=== PATIENT | male | born 1965 | race Caucasian/White ===

== ENCOUNTER 2017-07-24 09:56 | Day surgery (SDC) | payer BC ==
[~2017-07-24 09:56] MED LIST: Lactated Ringers 1,000 ML IV SCH; Lidocaine 2% 5 ML SDV ONE; Propofol 200 MG/20 ML SDV ONE
--- NOTE | 2017-07-24 10:44 | PCM.PREANE ---
Preanesthetic Assessment - Anesthesia/Transfusion/Family Hx Anesthesia History: Prior Anesthesia Reaction Type of Anesthesia Reaction: Other (see below) Other Type of Anesthesia Reaction Comment: was more awake than he wanted to be for EGD and colonoscopy Transfusion History: No Prior Transfusion(s) - Review of Systems General: No Symptoms Pulmonary: No Symptoms Cardiovascular: No Symptoms Gastrointestinal: No Symptoms Neurological: No Symptoms Other: Reports: None - Physical Assessment NPO Status Date: 07/23/17 Height: 1.96 m Weight: 122.924 kg ASA Class: 2 Mental Status: Alert & Oriented x3 Airway Class: Mallampati = 1 Dentition: Reports: Normal Dentition ROM/Head Extension: Full Lungs: Clear to Auscultation, Normal Respiratory Effort Cardiovascular: Regular Rate, Regular Rhythm - Allergies Allergies/Adverse Reactions: Allergies Allergy/AdvReac Type Severity Reaction Status Date / Time cephalexin Allergy Rash Verified 07/22/17 10:08 morphine Allergy Agitation Verified 07/22/17 10:08 - Anesthesia Plan Pre-Op Medication Ordered: None - Acknowledgements Anesthesia Type Planned: MAC Pt an Appropriate Candidate for the Planned Anesthesia: Yes Alternatives and Risks of Anesthesia Discussed w Pt/Guardian: Yes Pt/Guardian Understands and Agrees with Anesthesia Plan: Yes Additional Comments: recent elevation in BP, started on amlodipine but has not staken it yet. BP today 130/80. Recent cardiac w/u for atypical chest pain. Neg for ischemia. PreAnesthesia Questionnaire Gastrointestinal History: Reports: Colon Polyp, GERD, Hiatal Hernia Musculoskeletal History: Reports: Fracture Other Musculoskeletal History: hx of fx right hand and ribs Endocrine/Metabolic History: Reports: Obesity/BMI 30+ - Past Surgical History Head Surgeries/Procedures: Reports: None GI Surgical History: Reports: Colonoscopy, EGD, Other (See Below) Other GI Surgeries/Procedures: esophageal dilatation Musculoskeletal Surgical History: Reports: Arthroscopic Knee, Other (See Below) Other Musculoskeletal Surgeries/Procedures:: multiple knee arthroscopies on both knees, ACL repair left knee (has screws) - SUBSTANCE USE Smoking Status *Q: Former Smoker Tobacco Use Within Last Twelve Months: No Recreational Drug Use History: No - HOME MEDS Home Medications: Home Meds Aspirin [Adult Low Dose Aspirin EC] 81 mg PO DAILY 07/22/17 [History] Multivit-Min/FA/Lycopene/Lut [Centrum Silver Ultra Men's] 2 tab PO DAILY [History] Naproxen Sodium [Aleve] 440 mg PO DAILY 07/22/17 [History] Omeprazole 20 mg PO DAILY 07/22/17 [History] - CURRENT (IN HOUSE) MEDS Current Meds: Current Medications Lactated Ringer's (Ringers, Lactated) 1,000 mls @ 125 mls/hr IV ASDIRECTED WIL Discontinued Medications Lidocaine (Xylocaine-Mpf 2%) Confirm Administered Dose 5 ml .ROUTE .STK-MED ONE Stop: 07/24/17 07:38 Propofol (Diprivan 20 Ml) Confirm Administered Dose 400 mg .ROUTE .STK-MED ONE Stop: 07/24/17 07:38
--- NOTE | 2017-07-24 12:24 | PCM.OPNOTE ---
- General Post-Op/Procedure Note Date of Surgery/Procedure: 07/24/17 Operative Procedure(s): Esophagogastroduodenoscopy with gastric and esophageal biopsies. Colonoscopy. Pre Op Diagnosis: History of esophageal stricture. Rectal bleeding. Post-Op Diagnosis: Gastritis with esophagitis. No evidence of colonic neoplasia. Anesthesia Technique: MAC (ASA III) Primary Surgeon: Giovanni Johnson Condition: Good Free Text/Narrative:: DICTATION [id number] CPT CODE [id number]/63137
[2017-07-24] MEDS ORDERED: Lactated Ringers 1,000 ML IV SCH (12:30)
--- NOTE | 2017-07-24 12:56 | PCM48HPAN ---
Post Anesthesia Note - EVALUATION WITHIN 48HRS OF ANESTHETIC Vital Signs in Normal Range: Yes Patient Participated in Evaluation: Yes Respiratory Function Stable: Yes Airway Patent: Yes Cardiovascular Function Stable: Yes Hydration Status Stable: Yes Pain Control Satisfactory: Yes Nausea and Vomiting Control Satisfactory: Yes Mental Status Recovered: Yes Resp Rate: 16
--- NOTE | 2017-07-24 12:56 | PCM.POSTAN ---
POST ANESTHESIA ASSESSMENT - MENTAL STATUS Mental Status: Alert, Oriented - RESPIRATORY Respiratory Status: Respiratory Rate WNL, Airway Patent, O2 Saturation Stable - CARDIOVASCULAR CV Status: Pulse Rate WNL, Blood Pressure Stable - GASTROINTESTINAL GI Status: No Symptoms - POST OP HYDRATION Hydration Status: Adequate & Stable
--- NOTE | 2017-07-24 14:27 | OR ---
SURGEON: Giovanni Johnson M.D. DATE OF PROCEDURE: 07/24/2017 OPERATION PERFORMED: History of dysphagia, requiring previous endoscopic dilatation. ASA CLASS 3. ANESTHESIA: Monitored anesthesia care. PREOOPERATIVE DIAGNOSIS: History of esophageal stricture. Dysphagia POSTOPERATIVE DIAGNOSES: 1. Gastritis. 2. Hiatal hernia. DESCRIPTION OF PROCEDURE: The patient was taken to the endoscopy room and positioned on the endoscopy table in the left lateral decubitus position. Time-out was called for appropriate identification of the patient and procedure. Monitored anesthesia care was provided. The bite block was placed between the patient's teeth. The gastroscope was inserted through the bite block and advanced without difficulty through the esophagus and stomach into the duodenum where examination was carried out in a retrograde fashion. No blood was seen in the upper GI tract. There was no acute inflammatory changes noted within the duodenum. No ulcers were noted. The scope was withdrawn to the stomach, which does show a very mild gastritis. Antral biopsies were obtained to look for the presence of Helicobacter pylori. The gastroscope was then retroflexed to visualize the proximal stomach. No lesions were noted proximally. Specifically, no tumors or ulcers were seen. The gastroscope was then slowly withdrawn aspirating the stomach. The patient does have a hiatal hernia, this is small. There was no obstruction to the insertion of the scope. The GE junction is well defined, but did show some mild inflammatory changes. Separate biopsies of this area were obtained. The esophagus itself demonstrates good contractility. The vocal cords were briefly visualized as the scope was withdrawn and noted to move symmetrically. The gastroscope was then removed with the patient having tolerated this portion of the procedure well. Following colonoscopy, he was taken to recovery room in stable condition. LUCILA ESTRADA /[id number] JUAQUIN
--- NOTE | 2017-07-24 14:36 | OR ---
SURGEON: Giovanni Johnson M.D. DATE OF PROCEDURE: 07/24/2017 OPERATION PERFORMED: Colonoscopy. ANESTHESIA: MAC. ASA CLASSIFICATION: III. PREOPERATIVE DIAGNOSIS: Rectal bleeding. POSTOPERATIVE DIAGNOSIS: No evidence of neoplasia. DESCRIPTION OF PROCEDURE: With the patient having completed esophagogastroduodenoscopy, he was maintained in the left lateral decubitus position. The colonoscope was inserted into the rectum and advanced without difficulty to the cecum where the colonoscope was retroflexed to visualize the ascending colon from below. The colonoscope was then straightened and slowly withdrawn. The cecum, ascending colon, hepatic flexure, transverse colon, splenic flexure, descending colon, sigmoid colon, and rectum were very well visualized. No tumors, polyps, diverticula, or angiodysplastic changes were noted anywhere in the lower gastrointestinal tract. Once the colonoscope was withdrawn to the rectum, it was retroflexed to visualize the anal orifice from above. Again, no tumors or polyps were seen, and there were no acute hemorrhoidal changes. The colonoscope was then straightened, the rectum aspirated, and the colonoscope removed. The patient tolerated the procedure well and was taken to recovery room in satisfactory condition. LUCILA / SEAN /[id number]
== END 2017-07-24 12:59 | disposition home or self-care (01) ==
LOC: MW.SDS 09:56
PROVIDERS: ATTEND Surgery
DX: K62.5 Hemorrhage of anus and rectum (principal); R13.10 Dysphagia, unspecified; K29.50 Unspecified chronic gastritis without bleeding; K20.9 Esophagitis, unspecified; K44.9 Diaphragmatic hernia without obstruction or gangrene; I10 Essential (primary) hypertension; E66.9 Obesity, unspecified; Z68.32 Body mass index [BMI] 32.0-32.9, adult; K21.9 Gastro-esophageal reflux disease without esophagitis; Z86.010 Personal history of colon polyps; Z87.891 Personal history of nicotine dependence; Z79.82 Long term (current) use of aspirin; Z79.899 Other long term (current) drug therapy; Z88.5 Allergy status to narcotic agent; Z88.1 Allergy status to other antibiotic agents; Z83.71 Family history of colonic polyps
CPT/HCPCS: 43239; 45378; J7120; 88305; 88312; J2704

== ENCOUNTER 2017-08-31 06:33 | Day surgery (SDC) | payer BC ==
[~2017-08-31 06:33] MED LIST changes: -Lidocaine 2% 5 ML SDV ONE; -Propofol 200 MG/20 ML SDV ONE
[2017-08-31] MEDS ORDERED: Ondansetron 4 MG/2 ML SDV ONE (06:47)
[2017-08-31] MEDS ORDERED: Propofol 200 MG/20 ML SDV ONE (06:47)
[2017-08-31] MEDS ORDERED: Midazolam 1 MG/ML 2 ML SDV ONE (06:47)
[2017-08-31] MEDS ORDERED: fentaNYL 250 MCG/5 ML SDV ONE (06:47)
[2017-08-31] MEDS ORDERED: Lidocaine 2% 5 ML SDV ONE (06:47)
[2017-08-31] MEDS ORDERED: ceFAZolin 1 GM Vial ONE (07:13)
[2017-08-31] MEDS ORDERED: Bupivacaine 0.5% 10 ML SDV ONE (07:13)
--- NOTE | 2017-08-31 07:26 | PCM.PREANE ---
Preanesthetic Assessment - Anesthesia/Transfusion/Family Hx Anesthesia History: Prior Anesthesia Reaction Other Type of Anesthesia Reaction Comment: "I wake up to early" Family History of Anesthesia Reaction: No Transfusion History: No Prior Transfusion(s) Intubation History: Unknown - Review of Systems General: No Symptoms Pulmonary: No Symptoms Cardiovascular: No Symptoms Gastrointestinal: No Symptoms Neurological: No Symptoms Other: Reports: None - Physical Assessment Height: 1.96 m Weight: 123.377 kg ASA Class: 2 Mental Status: Alert & Oriented x3 Airway Class: Mallampati = 2 Dentition: Reports: Normal Dentition Thyro-Mental Finger Breadths: 3 Mouth Opening Finger Breadths: 2 ROM/Head Extension: Full Lungs: Clear to Auscultation, Normal Respiratory Effort Cardiovascular: Regular Rate, Regular Rhythm - Allergies Allergies/Adverse Reactions: Allergies Allergy/AdvReac Type Severity Reaction Status Date / Time cephalexin Allergy Rash Verified 08/26/17 08:55 morphine Allergy Agitation Verified 08/26/17 08:55 - Blood Blood Available: No - Anesthesia Plan Pre-Op Medication Ordered: None - Acknowledgements Anesthesia Type Planned: General Anesthesia Pt an Appropriate Candidate for the Planned Anesthesia: Yes Alternatives and Risks of Anesthesia Discussed w Pt/Guardian: Yes Pt/Guardian Understands and Agrees with Anesthesia Plan: Yes PreAnesthesia Questionnaire Cardiovascular History: Reports: Hypertension Gastrointestinal History: Reports: Colon Polyp, GERD, Hiatal Hernia Musculoskeletal History: Reports: Arthritis, Fracture Other Musculoskeletal History: hx of fx right hand and ribs Endocrine/Metabolic History: Reports: Obesity/BMI 30+ - Past Surgical History Head Surgeries/Procedures: Reports: None GI Surgical History: Reports: Colonoscopy (x3), EGD (x3), Other (See Below) Other GI Surgeries/Procedures: esophageal dilatation Musculoskeletal Surgical History: Reports: Arthroscopic Knee, Other (See Below) Other Musculoskeletal Surgeries/Procedures:: multiple knee arthroscopies on both knees (total 17 surgeries), ACL repair left knee (has screws) Dermatological Surgical History: Reports: Other (See Below) (exc. of multiple lipomas at one time) - SUBSTANCE USE Smoking Status *Q: Former Smoker (quit about 10 years ago) Tobacco Use Within Last Twelve Months: No Recreational Drug Use History: No - HOME MEDS Home Medications: Home Meds Aspirin [Adult Low Dose Aspirin EC] 81 mg PO DAILY 07/22/17 [History] Multivit-Min/FA/Lycopene/Lut [Centrum Silver Ultra Men's] 2 tab PO DAILY [History] Naproxen Sodium [Aleve] 440 mg PO DAILY 07/22/17 [History] Omeprazole 20 mg PO DAILY 07/22/17 [History] - CURRENT (IN HOUSE) MEDS Current Meds: Current Medications Lactated Ringer's (Ringers, Lactated) 1,000 mls @ 125 mls/hr IV ASDIRECTED WIL Last Admin: 08/31/17 06:55 Dose: 125 mls/hr Discontinued Medications Bupivacaine HCl (Sensorcaine-Mpf 0.5%) Confirm Administered Dose 20 ml .ROUTE .STK-MED ONE Stop: 08/31/17 07:14 Cefazolin Sodium (Ancef) Confirm Administered Dose 1 gm .ROUTE .STK-MED ONE Stop: 08/31/17 07:14 Fentanyl (Sublimaze) Confirm Administered Dose 250 mcg .ROUTE .STK-MED ONE Stop: 08/31/17 06:48 Lidocaine (Xylocaine-Mpf 2%) Confirm Administered Dose 5 ml .ROUTE .STK-MED ONE Stop: 08/31/17 06:48 Midazolam HCl (Versed 1 Mg/Ml) Confirm Administered Dose 2 mg .ROUTE .STK-MED ONE Stop: 08/31/17 06:48 Ondansetron HCl (Zofran) Confirm Administered Dose 4 mg .ROUTE .STK-MED ONE Stop: 08/31/17 06:48 Propofol (Diprivan 20 Ml) Confirm Administered Dose 200 mg .ROUTE .STK-MED ONE Stop: 08/31/17 06:48
[2017-08-31] MEDS ORDERED: Ciprofloxacin in D5W 200 ML ONE (07:35)
[2017-08-31] MEDS ORDERED: Phenylephrine/Normal Saline 100 MCG/ML 10 ML Syringe ONE (08:42)
[2017-08-31] MEDS ORDERED: Dexamethasone 4 MG/ML 5 ML MDV ONE (08:44)
[2017-08-31] MEDS ORDERED: Ondansetron 4 MG/2 ML SDV IVPUSH PRN (09:31)
[2017-08-31] MEDS ORDERED: Acetaminophen/HYDROcodone 325-5 MG Tab PO PRN (09:31)
--- NOTE | 2017-08-31 09:38 | PCM.OPNOTE ---
- General Post-Op/Procedure Note Date of Surgery/Procedure: 08/31/17 Operative Procedure(s): Repair indirect right inguinal hernia with medium Bard PerFix plug and patch Pre Op Diagnosis: Reducible right inguinal hernia Post-Op Diagnosis: Reducible indirect right inguinal hernia Anesthesia Technique: General ET Tube (ASA II) Primary Surgeon: Giovanni Johnson Fluid Replacement, Intraop: 1,000 EBL in mLs: 5 Condition: Good Free Text/Narrative:: DICTATION [id number] CPT CODE [id number]
[2017-08-31] MEDS ORDERED: Lactated Ringers 1,000 ML IV SCH (09:45)
[2017-08-31] MEDS: fentaNYL 100 MCG/2 ML SDV IVPUSH PRN ×2 (10:02→10:07)
--- NOTE | 2017-08-31 10:30 | PCM.POSTAN ---
POST ANESTHESIA ASSESSMENT - MENTAL STATUS Mental Status: Alert, Oriented - RESPIRATORY Respiratory Status: Respiratory Rate WNL, Airway Patent, O2 Saturation Stable - CARDIOVASCULAR CV Status: Pulse Rate WNL, Blood Pressure Stable - GASTROINTESTINAL GI Status: No Symptoms - PAIN Pain Score: 5 - POST OP HYDRATION Hydration Status: Adequate & Stable - OBSERVATIONS Free Text/Narrative:: no anesthesia problems
--- NOTE | 2017-08-31 12:49 | OR ---
SURGEON: Giovanni Johnson M.D. DATE OF PROCEDURE: 08/31/2017 OPERATION PERFORMED: Repair of right inguinal hernia with medium Bard PerFix plug and patch. ANESTHESIA: General endotracheal. ASA CLASSIFICATION: 2. PREOPERATIVE DIAGNOSIS: Reducible right inguinal hernia. POSTOPERATIVE DIAGNOSIS: Reducible indirect right inguinal hernia. ESTIMATED BLOOD LOSS: 5 mL. INTRAOPERATIVE FLUID REPLACEMENT: 1000 mL of crystalloid. DESCRIPTION OF PROCEDURE: The patient was taken to the operating room and placed on the operating table in the supine position. Time-out was called for appropriate identification of the patient and procedure. Thigh-high TEDs and sequential compression boots were placed. The surgical site had been marked prior to the patient entering the operating room. Following satisfactory attainment of general endotracheal anesthesia, the abdomen was prepped with DuraPrep solution. Sterile drapes were applied. The skin incision was marked out in the right inguinal crease. This was infiltrated with 10 mL of 0.5% Marcaine solution. The skin incision was made and deepened through the subcutaneous tissue obtaining hemostasis with the use of electrocautery. The external oblique fascia was opened in the direction of its fibers and retracted. The spermatic cord was identified and dissected away from the hernia sac. The hernia sac was then reduced. The defect was actually quite small and a medium Bard PerFix plug and patch was brought to the operating table and soaked in Ciprofloxacin antibiotic solution as the patient was allergic to Keflex. The plug was placed into the internal ring and secured with an 0 Ethibond suture. The patch was placed onto the inguinal floor with the wings brought around the cord laterally. The plug and patch were secured with multiple interrupted 0 Ethibond sutures inferiorly to Young's ligament transitioning to the inguinal ligament and superiorly to the transversalis fascia. The wings were brought around the cord and also secured laterally with 0 Ethibond. It should also be noted the plug and patch were secured together with at least 1 stitch to prevent migration. All sutures were tied down. The patient was given a Valsalva maneuver to 40 cm of water and the repair was solid. The wound was then irrigated with the ciprofloxacin antibiotic solution and all fluid aspirated. The cord was returned to its anatomic location. The external oblique fascia was closed with running 3-0 Vicryl. Lashay's fascia was closed with running 3-0 Vicryl. The skin edges were reapproximated with subcuticular 4-0 Monocryl, reinforced with Steri-Strips. A sterile Tegaderm pad was placed as a dressing. Sponge, needle, and instrument counts were all correct. The patient tolerated the procedure well. Following emergence from anesthesia and extubation, the patient was taken to recovery room in stable condition. LUCILA ESTRADA /[id number]
== END 2017-08-31 13:00 | disposition home or self-care (01) ==
LOC: MW.SDS 06:33
PROVIDERS: ATTEND Surgery
DX: K40.90 Unilateral inguinal hernia, without obstruction or gangrene, not specified as recurrent (principal); I10 Essential (primary) hypertension; E66.9 Obesity, unspecified; K21.9 Gastro-esophageal reflux disease without esophagitis; Z87.891 Personal history of nicotine dependence; Z79.82 Long term (current) use of aspirin; Z79.899 Other long term (current) drug therapy; Z88.1 Allergy status to other antibiotic agents; Z88.5 Allergy status to narcotic agent
CPT/HCPCS: 49505; A9270; C1781; J1100; J2250; J2405; J3010; J7120; J0690; J2704

== ENCOUNTER 2018-06-04 06:27 | Day surgery (SDC) | payer BC ==
[~2018-06-04 06:27] MED LIST changes: +Ciprofloxacin in D5W 400 MG in Premix Bag 1 BAG IV SCH
[2018-06-04] MEDS ORDERED: Propofol 200 MG/20 ML SDV ONE ×2 (07:06→09:48)
[2018-06-04] MEDS ORDERED: Midazolam 1 MG/ML 2 ML SDV ONE (07:06)
[2018-06-04] MEDS ORDERED: fentaNYL 250 MCG/5 ML SDV ONE (07:06)
[2018-06-04] MEDS ORDERED: Scopolamine 1.5 MG Transdermal Patch TRDERM PRN (07:11)
--- NOTE | 2018-06-04 07:12 | PCM.PREANE ---
Preanesthetic Assessment - Anesthesia/Transfusion/Family Hx Anesthesia History: Prior Anesthesia Reaction Other Type of Anesthesia Reaction Comment: was more awake than he wanted to be for EGD and colonoscopy Transfusion History: No Prior Transfusion(s) Intubation History: Unknown - Review of Systems General: No Symptoms Pulmonary: No Symptoms Cardiovascular: No Symptoms Gastrointestinal: No Symptoms Neurological: No Symptoms Other: Reports: None - Physical Assessment NPO Status Date: 06/03/18 Height: 6 ft 5 in Weight: 117.934 kg ASA Class: 2 Mental Status: Alert & Oriented x3 Airway Class: Mallampati = 1 Dentition: Reports: Normal Dentition ROM/Head Extension: Full Lungs: Clear to Auscultation, Normal Respiratory Effort Cardiovascular: Regular Rate, Regular Rhythm - Allergies Allergies/Adverse Reactions: Allergies Allergy/AdvReac Type Severity Reaction Status Date / Time cephalexin Allergy Rash Verified 06/03/18 09:32 morphine Allergy Agitation Verified 06/03/18 09:32 - Blood Blood Available: No - Anesthesia Plan Pre-Op Medication Ordered: Other (scop) - Acknowledgements Anesthesia Type Planned: General Anesthesia Pt an Appropriate Candidate for the Planned Anesthesia: Yes Alternatives and Risks of Anesthesia Discussed w Pt/Guardian: Yes Pt/Guardian Understands and Agrees with Anesthesia Plan: Yes PreAnesthesia Questionnaire HEENT History: Reports: Other (See Below) Other HEENT History: uses reading glasses Cardiovascular History: Reports: High Cholesterol, Hypertension Gastrointestinal History: Reports: Chronic Constipation, Colon Polyp, GERD, Hiatal Hernia Genitourinary History: Reports: BPH Musculoskeletal History: Reports: Fracture Other Musculoskeletal History: hx of fx ribs and hand Neurological History: Reports: Concussion Endocrine/Metabolic History: Reports: Obesity/BMI 30+ - Past Surgical History Head Surgeries/Procedures: Reports: None GI Surgical History: Reports: Colonoscopy, EGD, Esophageal Dilatation, Hernia, Inguinal Musculoskeletal Surgical History: Reports: Arthroscopic Knee Other Musculoskeletal Surgeries/Procedures:: hx of multiple knee arthroscopies and reconstruction of left knee (has screws), hx of excision of Lipoma - SUBSTANCE USE Smoking Status *Q: Former Smoker Tobacco Use Within Last Twelve Months: No Recreational Drug Use History: No - HOME MEDS Home Medications: Home Meds Aspirin [Adult Low Dose Aspirin EC] 81 mg CHEW DAILY 07/22/17 [History] Multivit-Min/FA/Lycopene/Lut [Centrum Silver Ultra Men's] 2 tab PO DAILY [History] Omeprazole 20 mg PO ASDIRECTED 07/22/17 [History] Celecoxib 100 mg PO BID 06/01/18 [History] Ranitidine HCl [Zantac] 150 mg PO ASDIRECTED 06/01/18 [History] amLODIPine Besylate [Norvasc] 2.5 mg PO DAILY 06/01/18 [History] - CURRENT (IN HOUSE) MEDS Current Meds: Current Medications Lactated Ringer's (Ringers, Lactated) 1,000 mls @ 125 mls/hr IV ASDIRECTED WIL Discontinued Medications Fentanyl (Sublimaze) Confirm Administered Dose 250 mcg .ROUTE .STK-MED ONE Stop: 06/04/18 07:07 Ciprofloxacin/Dextrose 400 mg/ (Premix) 200 mls @ 200 mls/hr IV Q12H [facility] Stop: 06/04/18 06:59 Midazolam HCl (Versed 1 Mg/Ml) Confirm Administered Dose 2 mg .ROUTE .STK-MED ONE Stop: 06/04/18 07:07 Propofol (Diprivan 20 Ml) Confirm Administered Dose 200 mg .ROUTE .STK-MED ONE Stop: 06/04/18 07:07
[2018-06-04] MEDS ORDERED: ceFAZolin 1 GM Vial ONE (07:24)
[2018-06-04] MEDS ORDERED: Bupivacaine 0.5% 30 ML SDV ONE (07:26)
[2018-06-04] MEDS ORDERED: Ciprofloxacin in D5W 0 ML ONE (07:41)
[2018-06-04] MEDS ORDERED: Promethazine 25 MG/ML SDV IM ONE (08:44)
[2018-06-04] MEDS ORDERED: Meperidine PF 25 MG/ML Syringe IVPUSH ONE (08:44)
[2018-06-04] MEDS ORDERED: HYDROmorphone 2 MG/ML SDV IVPUSH ONE (08:44)
[2018-06-04] MEDS ORDERED: HYDROmorphone 2 MG/ML Syringe ONE (08:55)
[2018-06-04] MEDS ORDERED: Succinylcholine 200 MG/10 ML MDV ONE (09:27)
[2018-06-04] MEDS ORDERED: Dexamethasone 4 MG/ML 5 ML MDV ONE (09:27)
[2018-06-04] MEDS ORDERED: Ondansetron 4 MG/2 ML SDV ONE (09:27)
[2018-06-04] MEDS ORDERED: Phenylephrine/Normal Saline 100 MCG/ML 10 ML Syringe ONE (09:27)
[2018-06-04] MEDS ORDERED: Rocuronium 100 MG/10 ML Syringe ONE (09:27)
[2018-06-04] MEDS ORDERED: Neostigmine Methylsulfate 1 MG/ML 5 ML Syringe ONE (09:27)
[2018-06-04] MEDS ORDERED: Glycopyrrolate 0.2 MG/ML SDV ONE (09:27)
[2018-06-04] MEDS ORDERED: Acetaminophen/HYDROcodone 325-5 MG Tab PO PRN (10:09)
[2018-06-04] MEDS ORDERED: HYDROmorphone 2 MG/ML Syringe IVPUSH PRN (10:10)
--- NOTE | 2018-06-04 10:13 | PCM.OPNOTE ---
- General Post-Op/Procedure Note Date of Surgery/Procedure: 06/04/18 Operative Procedure(s): Laparoscopic cholecystectomy with placement of 7 mm flat Murray-Stevenson drain Pre Op Diagnosis: Cholelithiasis Post-Op Diagnosis: Acute and chronic cholecystitis with cholelithiasis Anesthesia Technique: General ET Tube (ASA II) Primary Surgeon: Giovanni Johnson Fluid Replacement, Intraop: 1,500 Output, Urine Amount: 150 EBL in mLs: 20 Surgical Drain/Tube Type: Murray Stevenson Flat Drain (7 mm flat) Condition: Good Free Text/Narrative:: DICTATION [id number] CPT CODE 59280
[2018-06-04] MEDS ORDERED: Lactated Ringers 1,000 ML IV SCH (10:15)
[2018-06-04] MEDS ORDERED: Ketorolac 30 MG/ML SDV IVPUSH ONE (10:22)
[2018-06-04] MEDS: fentaNYL 100 MCG/2 ML SDV IVPUSH PRN ×4 (10:35→11:07)
--- NOTE | 2018-06-04 11:21 | PCM.POSTAN ---
POST ANESTHESIA ASSESSMENT - MENTAL STATUS Mental Status: Alert, Oriented - RESPIRATORY Respiratory Status: Respiratory Rate WNL, Airway Patent, O2 Saturation Stable, Supplemental Oxygen (per NC) - CARDIOVASCULAR CV Status: Pulse Rate WNL, Blood Pressure Stable - GASTROINTESTINAL GI Status: No Symptoms - PAIN Pain Score: 4 (Awake, but resting comfortably) - POST OP HYDRATION Hydration Status: Adequate & Stable - OBSERVATIONS Free Text/Narrative:: Pt stable for discharge to phase II recovery
--- NOTE | 2018-06-04 12:48 | PCM48HPAN ---
Post Anesthesia Note - EVALUATION WITHIN 48HRS OF ANESTHETIC Vital Signs in Normal Range: Yes Patient Participated in Evaluation: Yes Respiratory Function Stable: Yes Airway Patent: Yes Cardiovascular Function Stable: Yes Hydration Status Stable: Yes Pain Control Satisfactory: Yes Nausea and Vomiting Control Satisfactory: Yes Mental Status Recovered: Yes Resp Rate: 15
--- NOTE | 2018-06-04 16:55 | OR ---
SURGEON: Giovanni Johnson M.D. DATE OF PROCEDURE: 06/04/2018 PROCEDURE PERFORMED: Laparoscopic cholecystectomy with placement of 7 mm Murray-Stevenson drain. ANESTHESIA: General endotracheal. ASA CLASSIFICATION: II. PREOPERATIVE DIAGNOSIS: Symptomatic cholelithiasis. POSTOPERATIVE DIAGNOSIS: Acute on chronic cholecystitis with cholelithiasis. ESTIMATED BLOOD LOSS: 20 mL. INTRAOPERATIVE FLUID REPLACEMENT: 1500 mL of crystalloid. INTRAOPERATIVE URINE OUTPUT: 150 mL. DESCRIPTION OF PROCEDURE: The patient was taken to the operating room and placed on the operating table in the supine position. Time-out was called for appropriate identification of the patient and procedure. Thigh-high TEDs and sequential compression boots were placed. Following satisfactory attainment of general endotracheal anesthesia, a Yang catheter was placed in the patient's urinary bladder. The abdomen was prepped with DuraPrep solution. Sterile drapes were applied. The skin just above the umbilicus was infiltrated with 0.5% Marcaine solution. The skin incision was made and deepened through the subcutaneous tissue obtaining hemostasis with the use of electrocautery. The Veress needle was introduced into the peritoneal cavity. Saline drop test was positive. Carbon dioxide pneumoperitoneum was established with the release at 13 cm of water. Once a satisfactory pneumoperitoneum was established, the Veress needle was removed and a 5 mm camera and port were placed through the supraumbilical incision. The patient was now positioned with his feet down and rolled to the left. Under camera vision, 12 mm subxiphoid, 5 mm midclavicular, and 5 mm anterior axillary ports were placed. Each incision was preemptively infiltrated with 0.5% Marcaine solution. The gallbladder did have adhesions present and these were taken down. The cholecystohepatic triangle was inflamed and using gentle dissection, I was able to tease out the cystic duct and cystic artery which were serially hemoclipped and divided. The gallbladder was densely adherent along the top of the gallbladder, making dissection very difficult. There was essentially no tissue plane between the liver and the gallbladder and we did get into the gallbladder. Multiple stones were spilled and retrieved as they were spilling along with using the R[employer] clot evacuator and irrigation to remove the stones. It was also necessary to switch out a 0-degree camera for a 30-degree camera to visualize all the stones. All the stones that could be seen were removed. The bed of the gallbladder was then irrigated with sterile saline solution and no stones were seen floating. The area of the back wall of the gallbladder was cauterized. Avitene and Surgicel were placed into the bed of the gallbladder. The right hemidiaphragm was irrigated with 250 mL of saline with 20 mL of Marcaine. The fluid was left in place temporarily. Given the fact that the back wall of the gallbladder had to be left behind, a 7 mm flat Murray-Stevenson was placed through the anterior axillary port and secured under the liver bed were noted into the bed of the gallbladder under the liver. This was secured to the skin with a 2-0 silk. The right upper quadrant was again inspected, and no other stones were noted. The EndoCatch containing gallbladder and 12 mm port were removed and the 12 mm port reinserted to complete the procedure. Once the 7 [address] drain was in place, the anterior axillary port was removed and the drain was secured to the skin as I said with a 2-0 silk suture. Again, under camera vision, the midclavicular and subxiphoid ports were removed and finally the supraumbilical camera and port was removed. The patient was now positioned in a neutral position. The subxiphoid and supraumbilical incisions were closed in 2 layers approximating the subcutaneous tissue with 3-0 Vicryl and the skin with subcuticular 4-0 Monocryl. The midclavicular incision was closed with subcuticular 4-0 Monocryl. All incisions except the anterior axillary incision were Steri-Stripped. Sterile Tegaderm pads were used as dressings. Sponge, needle, and instrument counts were all correct. The patient tolerated the procedure well. Yang catheter was removed prior to emergence from anesthesia. Following emergence from anesthesia and extubation, the patient was taken to recovery room in satisfactory condition. LUCILA ESTRADA /[id number] JUAQUIN
== END 2018-06-04 13:40 | disposition home or self-care (01) ==
LOC: MW.SDS 06:27
PROVIDERS: ATTEND Surgery
DX: K80.12 Calculus of gallbladder with acute and chronic cholecystitis without obstruction (principal); K82.8 Other specified diseases of gallbladder; K21.9 Gastro-esophageal reflux disease without esophagitis; I10 Essential (primary) hypertension; Z87.891 Personal history of nicotine dependence; Z86.010 Personal history of colon polyps; Z87.19 Personal history of other diseases of the digestive system; Z88.1 Allergy status to other antibiotic agents; Z88.5 Allergy status to narcotic agent; Z79.82 Long term (current) use of aspirin; Z79.899 Other long term (current) drug therapy
CPT/HCPCS: 47562; 88304; A9270; J0330; J0744; J1100; J1170; J1885; J2001; J2250; J2370; J2405; J2704; J3010; J3490; J7120; J0690